=== PATIENT | male | born 1955 | race Caucasian/White ===

== ENCOUNTER → 2017-04-03 18:13 | Outpatient (CLI) | payer BC ==
[2013-01-15 10:51] VITALS: BMI 25.1
[2017-04-03 20:54] LABS: ALT (SGPT) 31 U/L (10-68); LIPASE 290 U/L (73-393)
== END | disposition home or self-care (01) ==
LOC: D.LABREF 18:13
PROVIDERS: Internal Medicine Interventional Cardiology
DX: E78.5 Hyperlipidemia, unspecified (principal)

== ENCOUNTER 2018-07-14 08:03 | Outpatient (CLI) | payer BC ==
[~2018-07-14] VITALS: Ht 177.8 cm; Wt 88.6 kg
--- NOTE | ~2018-07-14 | DS ---
PATIENT:JANICE GONZALEZ :59 MEDICAL RECORD: [id number] DISCHARGE SUMMARY ADMISSION DATE: 07/14/18 DISCHARGE DATE: 07/15/18 DATE OF DISCHARGE: 07/15/2018 DIAGNOSES: 1. Non-Q-wave myocardial infarction. 2. Coronary artery disease. 3. PTCA and stent of LAD and circumflex this admission. HOSPITAL COURSE: Mr. Gonzalez presented with a non-Q-wave myocardial infarction, found to have critical disease of the LAD and circumflex. Underwent successful PTCA and stent of both territories. He was discharged home with the addition of aspirin and Plavix to his medical regimen as he is already on a statin and beta-rafael. He will follow up with [facility] in 1 month. TRANSINT:[id number] Voice Confirmation ID: [id number] DOCUMENT ID: [id number] CARLOS MAJANO MD at 1806 CC: [id number] DICTATION DATE: 07/15/18 0953 HORTICULTURAL TECHNICAL OFFICER: 07/15/18 1353 DEP CLI 07/15/[address] [address]
--- NOTE | ~2018-07-14 | HP ---
PATIENT: JANICE GONZALEZ MEDICAL RECORD: [id number] ACCOUNT: [id number] LOCATION:[facility] : 59 ADMISSION DATE: 07/14/18 HISTORY AND PHYSICAL EXAMINATION DIAGNOSES: 1. Non-Q-wave myocardial infarction. 2. Coronary disease. 3. Previous PTCA and stent. 4. Hypertension. 5. Hyperlipidemia. HISTORY: Mr. Gonzalez presents with chest pain since last night. His troponin is positive. He does have a past history of coronary disease. He had a [facility] and [facility] at [facility] at age 40. His last stents were 3 years ago at [facility]. REVIEW OF SYSTEMS: The patient reports easy bruising but reports no swollen glands. The patient reports no fever, no night sweats, no significant weight gain, no significant weight loss. No significant exercise tolerance. The patient reports no dry eyes, no irritation, no vision change. Patient reports no difficulty hearing and no ear pain. Patient reports no frequent nose bleeds or nose and sinus problems. Patient reports on arm pain on exertion. No shortness of breath while lying down. No history of heart murmur. Patient reports no cough, no wheezing or coughing up blood. Patient reports no abdominal pain, no vomiting. Normal appetite. No diarrhea and not vomiting blood. No nausea and no constipation. Patient reports no incontinence. No difficulty urinating. No hematuria. No increased frequency. Patient reports no muscle aches. No weakness, no arthralgias, no back pain. No swelling of the extremities. Patient reports no abnormal mole, no jaundice, no rashes. Reports no loss of consciousness. No weakness and no numbness. No seizures, dizziness, or headaches. The patient reports no depression, no sleep disturbance, feeling safe in a relationship and no alcohol abuse. Patient reports on fatigue. Reports no runny nose or sinus pressure. No itching, no hives, and no frequent sneezing. PHYSICAL EXAMINATION: GENERAL APPEARANCE: Well-nourished, well-developed, appears stated age. Level of distress, comfortable. PSYCHIATRIC: Mental status, alert, normal affect. Orientation, oriented to time, place and person. EYES: Lids and conjunctiva, noninjected. No discharge, no pallor. ENT: Lips, teeth, gums, normal dentition. Oropharynx, no cyanosis, no pallor. NECK: Carotid arteries, bilateral normal upstroke, no bruits, no thrills. JUGULAR VEINS: No jugular venous pressure or distention. CERVICAL LYMPH NODES: Nontender, nonenlarged. THYROID: Not enlarged. Nontender. No nodules. LUNGS: Respiratory effort, unlabored. CHEST: Normal curvature. No thoracic deformity. No chest wall tenderness. Percussion, resonant. Auscultation, clear. No wheezes, no rales, no rhonchi. CARDIOVASCULAR: Precordial exam, nondisplaced. No heaves or pericardial thrills. Rate and rhythm, regular. Heart sounds, normal S1, normal S2. No S3, no gallop, no rub. Systolic murmur, not heard. Diastolic murmur, not heard. EXTREMITIES: No cyanosis, no edema. Peripheral pulses, full and equal in all extremities, except as noted. No bruits appreciated. ABDOMEN: Soft, nondistended. Normal aorta. No bruit. Nontender. No masses. HISTORY AND PHYSICAL [id number] YOLY,JANICE Liver, nontender, no hepatomegaly. Spleen, nontender, no splenomegaly. MUSCULOSKELETAL: No joint tenderness. No joint swelling. No erythema. NEUROLOGICAL: Normal gait, normal strength, normal tone. SKIN: Warm and dry. OVERALL IMPRESSION: Non-Q-wave myocardial infarction. We will proceed with coronary angiography. Further care depends upon findings of the angiography. TRANSINT:[id number] Voice Confirmation ID: [id number] DOCUMENT ID: [id number] CARLOS MAJANO MD at 1806 CC: [id number] DICTATION DATE: 07/14/18 1150 ADULT DAY CARE WORKER: 07/14/18 1201 DEP CLI 07/15/18 [facility] [address] [id number]
--- NOTE | ~2018-07-14 | OP ---
PATIENT NAME: JANICE FREDERICK MEDICAL RECORD: [id number] :59 LOCATION:D.CAT ADMISSION DATE: SURGEON: CARLOS MAJANO MD DATE OF OPERATION: 07/15/2018 PROCEDURES: 1. PTCA stent left circumflex. 2. PTCA stent first obtuse marginal. 3. Selective coronary angiography. INDICATION: Angina and coronary artery disease. PROCEDURE PERFORMED: After informed consent was obtained and after a detailed description of risks, benefits as well as alternative therapies, the patient elected to proceed with angiogram and angioplasty. The right femoral area was prepped and draped in normal sterile fashion. Right femoral artery was cannulated via modified Seldinger with placement of 7-Taiwanese sheath. All catheters exchanged through this sheath. FINDINGS: The left circumflex has 80+ percent stenosis, first obtuse marginal 95% stenosis. Marginal was addressed with a 2.5 x 8 mm Nathan, the circumflex with a 2.25 x 15 mm [place]. Result was 0% residual stenosis. OVERALL IMPRESSION: Successful percutaneous transluminal coronary angioplasty stent of the left circumflex and first obtuse marginal going from 95% initial stenosis to 0% residual. TRANSINT:[id number] Voice Confirmation ID: [id number] DOCUMENT ID: [id number] CARLOS MAJANO MD at 1806 CC: [id number] DICTATION DATE: 07/15/18 0954 ELECTRIC TRUCK CRANE OPERATOR: 07/15/18 1200 DEP CLI 07/15/18 [place] [id number]
--- NOTE | ~2018-07-14 | HEMODYNAMI ---
PATIENT:JANICE FREDERICK MEDICAL RECORD: [id number] : 59 LOCATION:[facility] ADMISSION DATE: 07/14/18 Generatedon:07/14/201813:20 Patient name: JANICE FREDERICK Patient #: [id number] SSN: D OB: 1955 Date of study: 07/14/2018 Page: Of Hemodynamic Procedure Report Patient Data Patient Demographics Procedure consent was obtained First Name: JANICE Gender: Male Last Name: YOLY : 1955 Patient #: [id number] Age: 62 year(s) Race: Unknown Additional ID: [id number] Contact details Address: [address] [place] [address] DRIVE State: [place] City: [place] Zip code: [address] Admission Admission Data Admission Date: 07/14/2018 Admission Time: 8:03 Arrival Date: 07/14/2018 Arrival Time: 0:00 Admit Source: Emergency Insurance Payor: Private department health insurance Lab Results Lab Result Date: 07/14/2018 Lab Result Time: 0:00 Biochemistry Name Units Result Min Max BUN mg/dl 12 --(-*--)-- 7 18 Creatinine mg/dl 1 --(--*-)-- 0.6 1.3 CBC Name Units Result Min Max Hemoglobin g/dl 15.4 --(-*--)-- 13.5 17.5 Procedure Procedure Types Cath Procedure Diagnostic Procedure LHC LH w/Coronaries Sedation Charges Moderate Sedation up to 15 minutes PCI Procedure Coronary Stent Coronary Stent Initial Coronary Stent Additional Procedure Description Procedure Date Procedure Date: 07/14/2018 Procedure Start Time: 12:53 Procedure End Time: 13:16 Procedure Staff Name Function Ayad Maria MD Performing Physician Fely Desai RT Monitor Carmita Bah RN Nurse Ruth Ann Romero RT Scrub Procedure Data Cath Procedure Fluoroscopy Diagnostic fluoroscopy Total fluoroscopy Time: 8.4 time: 8.4 min min Diagnostic fluoroscopy Total fluoroscopy dose: dose: 1416 mGy 1416 mGy Contrast Material Contrast Material Type Amount (ml) Isovue 300 203 Entry Location Entry Primary Successful Side Size Upsize Upsize Entry Closure Succes sful Closure Location (Fr) 1 (Fr) 2 (Fr) Remarks Device Remarks Femoral Left 6 Fr Exoseal artery Short Estimated blood loss: 5 ml Diagnostic catheters Device Type Used For End Catheter Placement MULTIPACK Pigtail 5 Fr LV Angiography catheter MULTIPACK JL 4.0 5Fr Left Coronary catheter Angiography MULTIPACK 3DRC 5Fr Right Coronary catheter Angiography Procedure Complications No complications Procedure Medications Medication Administration Route Dosage Oxygen etCO2 Nasal cannula 2 l/min Lidocaine 2% added to field 20 Heparin Flush Bag added to field 2 bags (1000units/500ml NS) 0.9% NaCl I.V. 100 ml/hr Versed I.V. 2 mg Fentanyl I.V. 100 mcg Heparin Bolus I.V. 5000 units Versed I.V. 1 mg Fentanyl I.V. 50 mcg Integrilin (Bolus I.V. 7.9 ml 2mg/ml) Versed I.V. 1 mg Fentanyl I.V. 50 mcg Hemodynamics Rest HGB: 15.4 (g/dl) Heart Rate: 46 (bpm) Snapshots Pre Cath Intra NCS Post Cath Vital Signs Time Heart Resp SPO2 etCO2 NIBP Rhythm Pain Sedation Rate (ipm) (%) (mmHg) (mmHg) Status Level (bpm) 12:14:34 50 15 98 31.5 105/63(78) NSR 0 (11) 10(A) , No pain 12:18:38 55 11 96 21 98/61(75) NSR 0 (11) 10(A) , No pain 12:22:39 54 15 97 20 104/59(78) NSR 0 (11) 10(A) , No pain 12:26:43 60 14 94 0 97/60(77) NSR 0 (11) 10(A) , No pain 12:30:47 57 15 93 0 95/58(76) NSR 0 (11) 10(A) , No pain 12:34:51 52 15 94 23.2 97/55(74) NSR 0 (11) 10(A) , No pain 12:38:52 54 14 96 24 98/60(75) NSR 0 (11) 10(A) , No pain 12:42:54 58 16 93 24.7 99/62(72) NSR 0 (11) 10(A) , No pain 12:46:58 53 16 96 24.7 99/60(72) NSR 0 (11) 10(A) , No pain 12:51:00 54 14 95 24.7 98/61(79) NSR 0 (11) 10(A) , No pain 12:55:01 52 15 100 0 92/63(76) NSR 0 (11) 9(A) , No pain 12:59:01 57 13 97 23.2 96/61(82) NSR 0 (11) 9(A) , No pain 13:03:00 55 14 100 0 102/64(76) NSR 0 (11) 9(A) , No pain 13:07:04 58 13 99 17.9 96/61(79) NSR 0 (11) 9(A) , No pain 13:11:04 54 12 100 11.9 103/66(74) NSR 0 (11) 9(A) , No pain 13:15:04 57 14 100 23.2 115/74(94) NSR 0 (11) 10(A) , No pain Medications Time Medication Route Dose Verified Delivered Reason Notes Effectiveness by by 12:14:58 Oxygen etCO2 2 Ayad Buffie used for Nasal l/min Candace Bah RN procedure cannula 12:15:05 Lidocaine 2% added 20ml Ayad Ayad for local to vial Candace Maria MD anesthetic field 12:15:12 Heparin Flush added 2 Ayad Ayad used for Bag to bags Candace Maria MD procedure (1000units/500ml field NS) 12:15:22 0.9% NaCl I.V. 100 Ayad Buffie Per physician ml/hr Candace Bah RN 12:52:26 Versed I.V. 2 mg Ayad Buffie for sedation Candace Bah RN 12:52:34 Fentanyl I.V. 100 Ayad Buffie for sedation mcg Candace aBh RN 12:59:20 Heparin Bolus I.V. 5000 Ayad Buffie for verif ied units Candace Bah RN anticoagulation with dr maria 13:02:24 Versed I.V. 1 mg Ayad Buffie for sedation Candace Bah RN 13:02:27 Fentanyl I.V. 50 Ayad Buffie for sedation mcg Candace Bah RN 13:08:25 Versed I.V. 1 mg Ayad Vizcarra for sedation Candace Bah RN 13:08:29 Fentanyl I.V. 50 Ayad Vizcarra for sedation mcg Candace Bah RN 13:12:57 Integrilin I.V. 7.9 Ayad Vizcarra for Waste d (Bolus 2mg/ml) ml Candace Bah RN antiplatelet 2.1 ml therapy of vial Procedure Log Time Note 11:49:10 Diagnostic Cath status Elective 11:49:13 Carmita Bah RN sent for patient. Start room use. 11:49:14 Time tracking: Regular hours (M-F 7:00 - 5:00) 11:49:26 Plan of Care:Hemodynamics will remain stable., Cardiac rhythm will remain stable., Comfort level will be maintained., Respiratory function will remain adequate., Patient/ family verbilizes understanding of procedure., Procedure tolerated without complication., Recovers from procedure without complications.. 11:49:32 Patient received from ED to CCL 2 Alert and oriented. Tansferred to table in Supine position. 12:00:18 Admit Source: Emergency department 12:00:26 Insurance Payor : Private health insurance 12:00:31 Arrival Date: 07/14/2018 12:00:00 AM 12:01:52 Lab Result : BUN 12 mg/dl 12:01:52 Lab Result : Hemoglobin 15.4 g/dl 12:01:52 Lab Result : Creatinine 1 mg/dl 12:13:16 Warm blankets applied, and rj hugger turned on for patient comfort. 12:13:16 Correct patient and procedure confirmed by team. 12:13:18 Signed procedure consent form obtained from patient. 12:13:19 ECG and BP/O2 sat monitors applied to patient. 12:13:20 Vital chart was started 12:13:27 Baseline sample Acquired. 12:13:35 Rhythm: sinus rhythm 12:13:36 Full Disclosure recording started 12:13:44 H&P Date Dictated: 07/14/2018 New H&P dictated by physician.. 12:13:46 Pre-procedure instructions explained to patient. 12:13:46 Pre-op teaching completed and patient verbalized understanding. 12:13:47 Family in waiting room. 12:13:49 Patient NPO since Midnight. 12:13:50 Is the patient allergic to Iodine/contrast media? No. 12:13:51 Was the patient premedicated? No 12:14:01 Is patient on blood thinner?Yes 12:14:03 ACC The patient was administered the following blood thiners within the last 24 hours: ACCPlavix 12:14:05 Patient diabetic? No. 12:14:08 Previous problem with sedation/anesthesia? No ? 12:14:10 Snore? No 12:14:11 Sleep apnea? No 12:14:12 Deviated septum? No 12:14:12 Opens mouth fully? Yes 12:14:13 Sticks out tongue? Yes 12:14:15 Airway obstruction? No ? 12:14:17 Dentures? No ? 12:14:21 Pre procedure: right dorsailis pedis pulse 2+ Normal; easily identifiable; not easily obliterated 12:14:58 Oxygen 2 l/min etCO2 Nasal cannula was administered by Carmita Bah RN; used for procedure; 12:15:05 Lidocaine 2% 20ml vial added to field was administered by Ayad Maria MD; for local anesthetic; 12:15:12 Heparin Flush Bag (1000units/500ml NS) 2 bags added to field was administered by Ayad Maria MD; used for procedure; 12:15:22 0.9% NaCl 100 ml/hr I.V. was administered by Carmita Bah RN; Per physician; 12:19:57 Patient pain scale 0/10 ?. 12:20:13 IV patent on arrival in right forearm with 0.9% NaCl at [facility]. 12:20:15 Lab results completed and on chart. 12:20:18 Left groin area was prepped with chlora-prep and draped in sterile fashion 12:20:19 Alarms reviewed by R. N. 12:20:20 Sharps counted by scrub and verified by R.N. 12:22:04 Physician paged 12:51:09 Physician arrived 12:51:09 --------ALL STOP TIME OUT------ 12:51:10 Final Timeout: patient, procedure, and site verified with staff and physician. All members of the team are in agreement. 12:51:14 Left groin site verified by team. 12:51:17 Physical assessment completed. ASA score P 2 - A patient with mild systemic disease as per Ayad Maria MD. 12:51:21 Sedation plan: IV Moderate Sedation Medication:Versed, Fentanyl 12:51:27 Use device set Femoral Dx 12:51:29 ACIST Syringe (26015) opened to sterile field. 12:51:29 Bag Decanter (2002S) opened to sterile field. 12:51:30 Medline Cath Pack ([id number]) opened to sterile field. 12:51:30 DIAGNOSTIC WIRE .035 260cm J wire (682563) opened to sterile field. 12:51:32 ACIST Hand Control (24524) opened to sterile field. 12:51:32 ACIST Manifold (60509) opened to sterile field. 12:51:33 DIAGNOSTIC Multipack 5Fr catheter set (BL5234) opened to sterile field. 12:51:33 Tegaderm 4 x 4 (1626W) opened to sterile field. 12:51:40 Procedure started. 12:52:26 Versed 2 mg I.V. was administered by Carmita Bah RN; for sedation; 12:52:34 Fentanyl 100 mcg I.V. was administered by Carmita Bah RN; for sedation; 12:53:04 Local anesthetic to left femerol artery with Lidocaine 2% by Ayad Maria MD.INITIAL ACCESS ONLY 12:53:16 A 6 Fr Short sheath was inserted into the Left Femoral artery 12:53:27 SHEATH 6Fr Prelude ([id number]) opened to sterile field. 12:54:18 A MULTIPACK Pigtail 5 Fr catheter was advanced over the wire and used for LV Angiography. 12:54:59 LV hemodynamics recorded. 12:55:00 LV gram done using CORONEL 12:55:13 EF : 60 % 12:55:19 Catheter removed. 12:55:27 A MULTIPACK JL 4.0 5Fr catheter was advanced over the wire and used for Left Coronary Angiography. 12:56:20 LCA angiography performed. 12:56:32 Injector settings: Ml/sec: 3, Volume: 6, 12:56:54 Catheter removed. 12:57:00 A MULTIPACK 3DRC 5Fr catheter was advanced over the wire and used for Right Coronary Angiography. 12:57:09 RCA angiography performed. 12:57:11 Injector settings: Ml/sec: 3, Volume: 6, 12:57:18 Catheter removed. 12:57:19 Proceeding to intervention. 12:57:51 CHOICE PT Extra Support 182cm wire ([id number]) opened to sterile field. 12:57:52 INFLATOR Merit BasixCompak (JE7590) opened to sterile field. 12:58:42 GUIDE 6FR XBLAD 4.0 catheter ([id number]) opened to sterile field. 12:59:01 6 Fr xblad 4 guide catheter was inserted over the wire 12:59:20 Heparin Bolus 5000 units I.V. was administered by Carmita Bah RN; for anticoagulation; verified with dr maria 12:59:33 CHOICE PT Extra Support 182cm wire ([id number]) opened to sterile field. 12:59:59 choice pt wire advanced. 13:01:42 additional choice pt wire advanced across diagonal 13:02:18 Inflate balloon Inflation number: 1 A EUPHORA 2.5 x 15 Balloon ([id number]) was prepped and advanced across the 1st Diag, then inflated to 11 ZAHIRA for 0:10 (min:sec). 13:02:24 Versed 1 mg I.V. was administered by Carmita Bah RN; for sedation; 13:02:27 Fentanyl 50 mcg I.V. was administered by Carmita Bah RN; for sedation; 13:02:42 Inflation number: 2 The EUPHORA 2.5 x 15 Balloon ([id number]) was reinflated across the 1st Diag, to 11 ZAHIRA for 0:10 (min:sec). 13:03:05 Balloon removed over the wire. 13:05:19 Place stent Inflation Number: 3 A NELIA RX 2.5 x 15 stent ([id number]) was prepped and advanced across the 1st Diag. The stent was deployed at 13 ZAHIRA for 0:10 (min:sec). 13:05:56 Stent catheter was removed intact over wire. 13:06:13 wire removed from diagonal 13:07:25 Inflation number: 1 The EUPHORA 2.5 x 15 Balloon ([id number]) was reinflated across the Mid LAD, to 17 ZAHIRA for 0:10 (min:sec). 13:08:10 Balloon removed over the wire. 13:08:25 Versed 1 mg I.V. was administered by Carmita Bah RN; for sedation; 13:08:29 Fentanyl 50 mcg I.V. was administered by Carmita Bah RN; for sedation; 13:09:14 Place stent Inflation Number: 2 A NELIA RX 3.0 x 12 stent ([id number]) was prepped and advanced across the Mid LAD. The stent was deployed at 13 ZAHIRA for 0:10 (min:sec). 13:09:58 Stent catheter was removed intact over wire. 13:12:44 Place stent Inflation Number: 1 A NELIA RX 3.5 x 38 stent ([id number]) was prepped and advanced across the Prox LAD. The stent was deployed at 15 ZAHIRA for 0:10 (min:sec). 13:12:57 Integrilin (Bolus 2mg/ml) 7.9 ml I.V. was administered by Carmita Bah RN; for antiplatelet therapy; Wasted 2.1 ml of vial 13:13:42 Stent catheter was removed intact over wire. 13:13:43 Wire removed. 13:13:43 Guide catheter removed. 13:13:53 EXOSEAL 6Fr (EX600) opened to sterile field. 13:14:09 Sheath removed intact; hemostasis achieved with Exoseal to the Left Femoral artery. 13:14:11 Procedure ended.(Physican Out) 13:15:38 Fluoroscopy time 08.40 minutes. 13:15:42 Fluoroscopy dose: 1416 mGy 13:15:42 Flurop Dose total: 1416 13:15:45 Contrast amount:Isovue 300 203ml. 13:15:47 Sharps counted by scrub and verified by R.N. 13:15:48 Insertion/operative site no bleeding no hematoma. 13:15:51 Post-op/insertion site Left Femoral artery dressed using a 4 x 4 and Tegaderm. 13:15:54 Post left femerol artery:stable 13:15:56 Post Procedure Pulses reassessed and unchanged 13:15:58 Post procedure rhythm: unchanged. 13:16:01 Estimated blood loss: 5 ml 13:16:02 Post procedure instruction explained to patient.Patient verbalizes understanding. 13:16:02 Patient needs reinforcement of post procedure teaching. 13:16:40 Procedure type changed to Cath procedure, Diagnostic procedure, LHC, LHC w/Coronaries, Sedation Charges, Moderate Sedation up to 15 minutes, PCI procedure, Coronary Stent, Coronary Stent Initial, Coronary Stent Additional 13:16:41 Procedure and supply charges have been captured, reviewed, submitted and are correct. 13:16:45 Procedure Complication : No complications 13:16:47 Vital chart was stopped 13:16:48 See physician's report for complete and final results. 13:16:50 Report given to [facility]. 13:16:53 Patient transfered to [facility] with Stretcher. 13:16:56 Procedure ended. 13:16:56 Full Disclosure recording stopped 13:17:04 ACC-PCI Only Patient was given prescriptions, or instructed by Ayad Maria MD to start/continue the following medications upon discharge: Plavix 13:17:06 End room use (Document Last) Intervention Summary Intervention Notes Time ActionType Lesion and Equipment Used Action# Pressure Duration Attributes 13:02:18 Inflate 1st Diag EUPHORA 2.5 x 1 11 00:10 balloon 15 Balloon ([id number]) 13:02:42 Reinflate 1st Diag EUPHORA 2.5 x 2 11 00:10 balloon 15 Balloon ([id number]) 13:05:19 Place stent 1st Diag NELIA RX 2.5 x 3 13 00:10 15 stent ([id number]) 13:07:25 Reinflate Mid LAD EUPHORA 2.5 x 1 17 00:10 balloon 15 Balloon ([id number]) 13:09:14 Place stent Mid LAD NELIA RX 3.0 x 2 13 00:10 12 stent ([id number]) 13:12:44 Place stent Prox LAD NELIA RX 3.5 x 1 15 00:10 38 stent ([id number]) Device Usage Item Name Manufacture Quantity Catalog Number Hospital Part Current M inimal Lot# / Charge Number Stock Stock Serial# Code ACIST Syringe Acist 1 20400 476498 669898 097378 2 0 (28074) Medical Systems Inc Bag Decanter Microtek 1 518772 97179 511299 5 () Medical Inc. Medline Cath Cardinal 1 [id number] 587225 17509 740904 5 [facility] ([id number]) DIAGNOSTIC [facility] [place] 1 089812 580835 575644 581207 3 0 WIRE .035 260cm J wire (155742) ACIST Hand Acist 1 77844 522447 277720 108982 5 Control Medical (89965) Systems Inc ACIST Manifold Acist 1 57138 704600 309539 536370 5 (76347) Medical Systems Inc DIAGNOSTIC Cardinal 1 CR7313 294253 21080 894000 3 0 Multipack 5Fr Health catheter set (AW9552) Tegaderm 4 x 4 3M 1 1626W 806452 395359 154099 5 (1626W) SHEATH 6Fr Merit 1 [id number] 396767 778012 333906 5 Prelude Medical ([id number]) MULTIPACK Cardinal 1 814333 5 Pigtail 5 Fr Health catheter MULTIPACK JL Cardinal 1 516095 5 4.0 5Fr Health catheter MULTIPACK 3DRC Cardinal 1 624190 5 5Fr catheter Health CHOICE PT [place] 2 [id number] 711684 854706 873077 5 Extra Support Scientific 182cm wire ([id number]) INFLATOR Merit Merit 1 HR7011 703044 283525 957737 1 5 [place] (NP0043) GUIDE 6FR Cardinal 1 [id number] 610528 162960 566288 3 XBLAD 4.0 Health catheter ([id number]) EUPHORA 2.5 x Medtronic 1 [id number] 094681 156603 035005 5 [id number] 15 Balloon ([id number]) NELIA RX 2.5 x Medtronic 1 [id number] 065745 4586379 066095 5 [id number] 15 stent ([id number]) NELIA RX 3.0 x Medtronic 1 [id number] 524131 9748701 087532 5 [id number] 12 stent ([id number]) NELIA RX 3.5 x Medtronic 1 [id number] 055805 2720630 658822 5 [id number] 38 stent ([id number]) EXOSEAL 6Fr Cardinal 1 EX600 880027 432393 568233 1 0 (EX600) Health Signature Audit [place] Stage Time Signature Unsigned Intra-Procedure 07/14/2018 Ruth Ann Nick 1:20:53 PM RT(R) Signatures Monitor : Fely Desai Signature : RT Date : Time : [place] [address] [place] [address]
--- NOTE | ~2018-07-14 | OP ---
PATIENT NAME: JANICE FREDERICK MEDICAL RECORD: [id number] :59 LOCATION:D.CAT ADMISSION DATE: SURGEON: CARLOS MAJANO MD DATE OF OPERATION: 07/14/2018 PROCEDURES: 1. PTCA stent LAD. 2. PTCA stent LAD diagonal. 3. Left heart catheterization. 4. Selective coronary angiography. 5. Left ventriculogram. INDICATION: Unstable angina and coronary artery disease. PROCEDURE IN DETAIL: After informed consent was obtained and after a detailed description of risks, benefits as well as alternative therapies, the patient elected to proceed with angiogram and angioplasty. The left femoral area was prepped and draped in normal sterile fashion. Left femoral artery was cannulated via modified Seldinger technique with placement of 6-Chinese sheath. All catheters exchanged through this sheath. FINDINGS: The left ventriculogram was performed in standard 30-degree CORONEL view reveals preserved cardiac wall motion, ejection fraction estimated 60%. SELECTIVE CORONARY ANGIOGRAPHY: 1. Left main is with no significant angiographic disease. 2. Left anterior descending appears has what appears to be dissected area throughout the proximal vessel followed by 90% to 95% stenosis of the LAD and diagonal at the bifurcation. 3. The left circumflex has 95% stenosis of the first obtuse marginal and distal circumflex. 4. Right coronary artery is small, nondominant. PTCA STENT OF THE LAD AND LAD DIAGONAL: The diagonal was addressed with a 2.5 x 15 mm [place], the LAD with a 3.5 x 38 and 3.0 x 12 [place]. Result was 0% residual, no further evidence of dissection or thrombus with advent of KEITH-3 flow. IMPRESSION: Successful percutaneous transluminal coronary angioplasty stent of the left anterior descending going from 90% to 95% initial stenosis to 0% residual. PLAN: PTCA stent of the left circumflex in the near future. TRANSINT:[id number] Voice Confirmation ID: [id number] DOCUMENT ID: [id number] CARLOS MAJANO MD at 1806 CC: [id number] DICTATION DATE: 07/14/18 1320 BELT LINE FEEDER: 07/14/18 1346 DEP CLI 07/15/18 [place] [id number]
--- NOTE | ~2018-07-14 | HEMODYNAMI ---
PATIENT:JANICE FREDERICK MEDICAL RECORD: [id number] : 59 [facility] [id number] ADMISSION DATE: 07/14/18 Generatedon:07/15/20189:54 Patient name: JANICE FREDERICK Patient #: [id number] SSN: D OB: 1955 Date of study: 07/15/2018 Page: Of Hemodynamic Procedure Report Patient Data Patient Demographics Procedure consent was obtained First Name: JANICE Gender: Male Last Name: YOLY : 1955 Patient #: [id number] Age: 62 year(s) Race: Unknown Additional ID: [id number] Contact details [address]: [address] [place] [address] DRIVE State: [place] City: [place] Zip code: [address] Past Medical History Allergies Allergen Reaction Date Comments Reported Other allergy 07/15/2018 PCN Admission Admission Data Admission Date: 07/14/2018 Admission Time: 8:03 Arrival Date: 07/14/2018 Arrival Time: 0:00 Admit Source: Emergency Insurance Payor: Private department health insurance Room #: D.[id number] Lab Results Lab Result Date: 07/14/2018 Lab Result Time: 0:00 Biochemistry Name Units Result Min Max BUN mg/dl 12 --(-*--)-- 7 18 Creatinine mg/dl 1 --(--*-)-- 0.6 1.3 CBC Name Units Result Min Max Hemoglobin g/dl 15.4 --(-*--)-- 13.5 17.5 Procedure Procedure Types Cath Procedure Diagnostic Procedure Sedation Charges Moderate Sedation up to 15 minutes PCI Procedure Coronary Stent Coronary Stent Initial Coronary Stent Additional Procedure Description Procedure Date Procedure Date: 07/15/2018 Procedure Start Time: 9:19 Procedure End Time: 9:51 Procedure Staff Name Function Ayad Maria MD Performing Physician Thanh Owens RT Electric Motor Tester Chirag Henderson RT Monitor Randall Vogel RN Nurse Giuseppe Upton RT Scrub Procedure Data Cath Procedure Fluoroscopy Diagnostic fluoroscopy Total fluoroscopy Time: time: 12.1 min 12.1 min Diagnostic fluoroscopy Total fluoroscopy dose: 571 dose: 571 mGy mGy Contrast Material Contrast Material Type Amount (ml) Isovue 300 129 Entry Location Entry Primary Successful Side Size Upsize Upsize Entry Closure Succes sful Closure Location (Fr) 1 (Fr) 2 (Fr) Remarks Device Remarks Femoral Right 6 Fr 7 Fr Exoseal artery Short Short Estimated blood loss: 10 ml Procedure Complications No complications Procedure Medications Medication Administration Route Dosage Oxygen etCO2 Nasal cannula 2 l/min Heparin Flush Bag added to field 2 bags (1000units/500ml NS) 0.9% NaCl I.V. 100 ml/hr Benadryl I.V. 50 mg Plavix P.O. 75 mg Fentanyl I.V. 50 mcg Versed I.V. 1 mg Fentanyl I.V. 50 mcg Versed I.V. 1 mg Heparin Bolus I.V. 4000 units Heparin Bolus I.V. 2000 units Hemodynamics Rest HGB: 15.4 (g/dl) Heart Rate: 67 (bpm) Snapshots Pre Cath Intra NCS Post Cath Vital Signs Time Heart Resp SPO2 etCO2 NIBP (mmHg) Rhythm Pain Sedation Rate (ipm) (%) (mmHg) Status Level (bpm) 9:08:38 64 16 0 128/72(89) NSR 0 (11) 10(A) , No pain 9:14:00 61 16 98 0 127/68(102) NSR 0 (11) 10(A) , No pain 9:18:18 62 17 97 22.5 130/80(91) NSR 0 (11) 10(A) , No pain 9:22:36 66 16 90 0 131/82(94) NSR 0 (11) 9(A) , No pain 9:26:52 67 16 95 0 127/77(93) NSR 0 (11) 9(A) , No pain 9:31:12 68 17 96 0 123/73(98) NSR 0 (11) 9(A) , No pain 9:35:30 67 17 96 30.8 130/74(96) NSR 0 (11) 9(A) , No pain 9:39:50 67 16 97 30.1 123/73(101) NSR 0 (11) 9(A) , No pain 9:44:06 68 16 97 27.8 121/77(98) NSR 0 (11) 9(A) , No pain 9:48:22 66 17 96 28.5 126/75(102) NSR 0 (11) 9(A) , No pain Medications Time Medication Route Dose Verified Delivered Reason Notes Effectiveness by by 9:06:04 Oxygen etCO2 2 Ayad Houstony Per physician Nasal l/min Candace Vogel RN cannula 9:06:12 Heparin Flush added 2 Ayad Houstony used for Bag to bags Candace Vogel RN procedure (1000units/500ml field NS) 9:06:20 0.9% NaCl I.V. 100 Ayad Houstony Per physician ml/hr Candace Vogel RN 9:12:44 Benadryl I.V. 50 mg Ayad Pereira Per physician Candace Vogel RN 9:12:52 Plavix P.O. 75 mg Ayad Pereira for Candace Vogel RN antiplatelet therapy 9:17:13 Fentanyl I.V. 50 Ayad Randall for sedation mcg Canadce Vogel RN 9:17:21 Versed I.V. 1 mg Ayad Houstony for sedation Candace Vogel RN 9:19:57 Fentanyl I.V. 50 Ayad Houstony for sedation mcg Candace Vogel RN 9:20:04 Versed I.V. 1 mg Ayadjoselito Houstony for sedation Candace Vogel RN 9:24:52 Heparin Bolus I.V. 4000 Ayad Houstony for units Candace Vogel RN anticoagulation 9:44:21 Heparin Bolus I.V. 2000 Ayad Randall for units Candace Vogel RN anticoagulation Procedure Log Time Note 8:40:27 Giuseppe Upton RT(R) sent for patient. Start room use. 8:46:28 Time tracking: Regular hours (M-F 7:00 - 5:00) 8:46:32 Plan of Care:Hemodynamics will remain stable., Cardiac rhythm will remain stable., Comfort level will be maintained., Respiratory function will remain adequate., Patient/ family verbilizes understanding of procedure., Procedure tolerated without complication., Recovers from procedure without complications.. 8:58:08 Patient received from Med II to [facility] 3 Alert and oriented. Tansferred to table in Supine position. 8:58:09 Warm blankets applied, and rj hugger turned on for patient comfort. 8:58:10 Correct patient and procedure confirmed by team. 8:58:11 Signed procedure consent form obtained from patient. 8:58:12 ECG and BP/O2 sat monitors applied to patient. 8:58:13 Pre-procedure instructions explained to patient. 8:58:13 Pre-op teaching completed and patient verbalized understanding. 9:06:04 Oxygen 2 l/min etCO2 Nasal cannula was administered by Randall Vogel RN; Per physician; 9:06:12 Heparin Flush Bag (1000units/500ml NS) 2 bags added to field was administered by Randall Vogel RN; used for procedure; 9:06:20 0.9% NaCl 100 ml/hr I.V. was administered by Randall Vogel RN; Per physician; 9:07:26 Vital chart was started 9:12:44 Benadryl 50 mg I.V. was administered by Randall Vogel RN; Per physician; 9:12:52 Plavix 75 mg P.O. was administered by Randall Vogel RN; for antiplatelet therapy; 9:14:11 Baseline sample Acquired. 9:14:14 Rhythm: sinus rhythm 9:14:15 Full Disclosure recording started 9:14:32 H&P Date Dictated: 07/14/2018 Within 30 days and on chart.. 9:14:35 Family unavailable. 9:14:36 Patient NPO since Midnight. 9:14:47 Patient allergic to Other allergyPCN 9:14:49 Is the patient allergic to Iodine/contrast media? No. 9:14:51 Is patient on blood thinner?Yes 9:14:55 Patient diabetic? No. 9:14:57 Previous problem with sedation/anesthesia? No ? 9:14:59 Snore? No 9:15:00 Sleep apnea? No 9:15:00 Deviated septum? No 9:15:01 Opens mouth fully? Yes 9:15:02 Sticks out tongue? Yes 9:15:10 Airway obstruction? Yes lobectomy 9:15:16 Dentures? No ? 9:15:18 Pre procedure: right dorsailis pedis pulse 2+ Normal; easily identifiable; not easily obliterated 9:15:21 Patient pain scale 0/10 ?. 9:15:24 IV patent on arrival in right wrist with 0.9% NaCl at [facility]. 9:15:27 Lab results completed and on chart. 9:15:29 Right groin area was prepped with chlora-prep and draped in sterile fashion 9:15:30 Alarms reviewed by R. N. 9:15:31 Sharps counted by scrub and verified by R.N. 9:15:34 ACIST Syringe (32710) opened to sterile field. 9:15:34 Bag Decanter (2002S) opened to sterile field. 9:15:35 Medline Cath Pack ([id number]) opened to sterile field. 9:15:36 DIAGNOSTIC WIRE .035 260cm J wire (122638) opened to sterile field. 9:15:37 ACIST Hand Control (50263) opened to sterile field. 9:15:37 ACIST Manifold (69244) opened to sterile field. 9:15:38 Tegaderm 4 x 4 (1626W) opened to sterile field. 9:15:48 SHEATH Prelude 6Fr 0.035 (BTP-9V-52-035) opened to sterile field. 9:15:57 CHOICE PT Extra Support 182cm wire ([id number]) opened to sterile field. 9:15:57 INFLATOR Merit BasixCompak (FS6139) opened to sterile field. 9:16:02 Physician arrived 9:16:02 --------ALL STOP TIME OUT------ 9:16:03 Final Timeout: patient, procedure, and site verified with staff and physician. All members of the team are in agreement. 9:16:05 Right groin site verified by team. 9:16:07 Physical assessment completed. ASA score P 2 - A patient with mild systemic disease as per Ayad Maria MD. 9:16:09 Sedation plan: IV Moderate Sedation Medication:Versed, Fentanyl 9:17:13 Fentanyl 50 mcg I.V. was administered by Randall Vogel RN; for sedation; 9:17:21 Versed 1 mg I.V. was administered by Randall Vogel RN; for sedation; 9:19:20 Procedure started. 9:19:22 Local anesthetic to right femoral artery with Lidocaine 2% by Ayad Maria MD.INITIAL ACCESS ONLY 9:19:29 A 6 Fr Short sheath was inserted into the Right Femoral artery 9:19:41 Zero performed for pressure channel P1 9:19:57 Fentanyl 50 mcg I.V. was administered by Randall Vogel RN; for sedation; 9::04 Versed 1 mg I.V. was administered by Randall Vogel RN; for sedation; 9:20:04 IV Extension Set opened to sterile field. 9:20:15 GUIDE 6FR XBLAD 4.0 catheter ([id number]) opened to sterile field. 9:20:22 6 Fr XBLAD 4 guide catheter was inserted over the wire 9:21:25 CHOICE PT ES wire advanced. 9:22:50 Wire removed. unable to cannulate vessel. 9:22:58 GRAPHIX 182cm guide wire ([id number]) opened to sterile field. 9:23:05 GRAPHIX wire advanced. 9:24:19 Wire advanced across lesion. 9:24:52 Heparin Bolus 4000 units I.V. was administered by Randall Vogel RN; for anticoagulation; 9:26:41 The NELIA RX 2.25 x 15 stent ([id number]) was advanced then removed because of failure to cross lesion 9:26:47 Wire removed. unable to get back-up support 9:26:50 Guide Catheter removed. unable to get back-up support 9:26:59 SHEATH 7FR Goff (VXJ803) opened to sterile field. 9:27:08 GUIDE 7FR EBU 3.5 catheter ([id number]) opened to sterile field. 9:27:14 Sheath upsized to a 7 Fr Short. 9:27:20 7 Fr EBU 3.5 guide catheter was inserted over the wire 9:27:24 GRAPHIX wire advanced. 9:28:51 Wire advanced across lesion. 9:30:42 The NELIA RX 2.25 x 15 stent ([id number]) was advanced then removed because of failure to cross lesion 9:31:41 Inflate balloon Inflation number: 1 A EUPHORA 3.5 x 15 Balloon ([id number]) was prepped and advanced across the Dist CX, then inflated to 15 ZAHIRA for 0:10 (min:sec). 9:32:34 Balloon removed over the wire. 9:33:24 Place stent Inflation Number: 2 A NELIA RX 2.25 x 15 stent ([id number]) was prepped and advanced across the Dist CX. The stent was deployed at 13 ZAHIRA for 0:10 (min:sec). 9:33:34 Stent catheter was removed intact over wire. 9:33:35 Wire removed. 9:33:46 GRAPHIX 182cm guide wire ([id number]) opened to sterile field. 9:33:53 GRAPHIX wire advanced. 9:36:16 Wire removed. unable to cannulate vessel. 9:36:27 SuperCross Microcatheter 90 angle (5304) opened to sterile field. 9:36:28 GRAPHIX 300cm 0.014 guide wire ([id number]) opened to sterile field. 9:36:41 LONG GRAPHIX wire advanced. 9:37:09 SuperCross Microcatheter advanced over wire. 9:39:16 Wire advanced across lesion. 9:41:58 superCross removed over wire. 9:42:06 The NELIA OTW 2.5 x 08 stent ([id number]) was advanced then removed because of failure to cross lesion 9:44:11 Inflate balloon Inflation number: 1 A MAVERICK 2.5 X 9 balloon ([id number]) was prepped and advanced across the 1st Ob Mindy, then inflated to 13 ZAHIRA for 0:10 (min:sec). 9:44:20 Inflation number: 2 The MAVERICK 2.5 X 9 balloon ([id number]) was reinflated across the 1st Ob Mindy, to 17 ZAHIRA for 0:10 (min:sec). 9:44:21 Heparin Bolus 2000 units I.V. was administered by Randall Vogel RN; for anticoagulation; 9:44:45 Balloon removed over the wire. 9:46:06 Inflation number: 3 The MAVERICK 2.5 X 9 balloon ([id number]) was reinflated across the 1st Ob Mindy, to 17 ZAHIRA for 0:10 (min:sec). 9:46:24 Balloon removed over the wire. 9:46:25 Wire removed. 9:46:25 Guide catheter removed. 9:46:31 EXOSEAL 7Fr (EX700) opened to sterile field. 9:46:38 Sheath removed intact; hemostasis achieved with Exoseal to the Right Femoral artery. 9:46:39 Procedure ended.(Physican Out) 9:48:21 Fluoroscopy time 12.10 minutes. 9:48:27 Fluoroscopy dose: 571 mGy 9:48:27 Flurop Dose total: 571 9:48:37 Contrast amount:Isovue 300 129ml. 9:48:50 Sharps counted by scrub and verified by R.N. 9:48:51 Insertion/operative site no bleeding no hematoma. 9:48:54 Post-op/insertion site Right Femoral artery dressed using a 4 x 4 and Tegaderm. 9:48:57 Post right femoral artery:stable, soft, clean and dry 9:49:20 Post Procedure Pulses reassessed and unchanged 9:49:25 Post-procedure physical assessment completed. ASA score P 2 - A patient with mild systemic disease as per Ayad Maria MD. 9:49:27 Post procedure rhythm: unchanged. 9:49:30 Estimated blood loss: 10 ml 9:49:31 Post procedure instruction explained to patient.Patient verbalizes understanding. 9:49:31 Patient needs reinforcement of post procedure teaching. 9:50:05 Procedure type changed to Cath procedure, Diagnostic procedure, Sedation Charges, Moderate Sedation up to 15 minutes, PCI procedure, Coronary Stent, Coronary Stent Initial, Coronary Stent Additional 9:51:05 Procedure and supply charges have been captured, reviewed, submitted and are correct. 9:51:07 Procedure Complication : No complications 9:51:09 Vital chart was stopped 9:51:09 See physician's report for complete and final results. 9:51:11 Report given to Pre/Post Procedure Room. 9:51:13 Patient transfered to Pre/Post Procedure Room with Stretcher. 9:51:14 Procedure ended. 9:51:14 Full Disclosure recording stopped 9:51:42 End room use (Document Last) Intervention Summary Intervention Notes Time ActionType Lesion and Equipment Used Action# Pressure Duration Attributes 9:26:41 Discard NELIA RX 2.25 x Stent 15 stent ([id number]) 9:30:42 Discard NELIA RX 2.25 x Stent 15 stent ([id number]) 9:31:41 Inflate Dist CX EUPHORA 3.5 x 1 15 00:10 balloon 15 Balloon ([id number]) 9:33:24 Place stent Dist CX NELIA RX 2.25 x 2 13 00:10 15 stent ([id number]) 9:42:06 Discard NELIA OTW 2.5 x Stent 08 stent ([id number]) 9:44:11 Inflate 1st Ob Mindy MAVERICK 2.5 X 1 13 00:10 balloon 9 balloon ([id number]) 9:44:20 Reinflate 1st Ob Mindy MAVERICK 2.5 X 2 17 00:10 balloon 9 balloon ([id number]) 9:46:06 Reinflate 1st Ob Mindy MAVERICK 2.5 X 3 17 00:10 balloon 9 balloon ([id number]) Device Usage Item Name Manufacture Quantity Catalog Number Hospital Part Current Minimal Lot# / Charge Number Stock Stock Serial# Code ACIST Syringe Acist 1 18022 063187 590390 200811 20 (00127) [employer] Bag Decanter Microtek 1 595951 48855 909757 5 () Medical Inc. Medline Cath Cardinal 1 [id number] 597809 83772 414078 5 CaseStack ([id number]) DIAGNOSTIC WIRE [facility] [place] 1 349608 283514 756148 475970 30 .035 260cm J wire (980031) ACIST Hand Acist 1 88783 815212 760212 173839 5 Control (75647) [employer] Inc ACIST Manifold Acist 1 88851 550731 012044 803513 5 (51425) Medical Systems Inc Tegaderm 4 x 4 3M 1 1626W 949236 749921 122662 5 (1626W) SHEATH Prelude Merit 1 PLP-2S-59-35 641557 4750751 613784 5 6Fr 0.035 Medical (JFS-3A-43-035) CHOICE PT Extra [place] 1 [id number] 491352 235859 169586 5 Support 182cm Scientific wire ([id number]) INFLATOR Merit Merit 1 UF5540 189722 210829 391104 15 [facility] ([place]) IV Extension Hospira 1 80044-10 201444 11440 576648 5 Set GUIDE 6FR XBLAD Cardinal 1 14379064 783433 939993 154726 3 4.0 The Optima (09275178) GRAPHIX 182cm [place] 2 [id number] 031537 079211 150031 5 guide wire Scientific ([id number]) NELIA RX 2.25 x Medtronic 1 [id number] 619208 3722031 760342 5 [id number] 15 stent ([id number]) SHEATH 7FR Terumo 1 ZHG976 472402 673033 423622 5 Goff (ITM596) GUIDE 7FR EBU Medtronic 1 [id number] 511564 454277 084452 0 3.5 catheter ([id number]) EUPHORA 3.5 x Medtronic 1 [id number] 549240 218483 442396 5 [id number] 15 Balloon ([id number]) SuperCross Vascular 1 5304 147092 545963 332786 5 Microcatheter Solutions 90 angle (5304) GRAPHIX 300cm [place] 1 [id number] 303229 335365 313514 5 0.014 guide Scientific wire ([id number]) NELIA OTW 2.5 x Medtronic 1 [id number] 045402 87435 062239 5 [id number] 08 stent ([id number]) MAVERICK 2.5 X [place] 1 [id number] 590341 109258 088034 1 [id number] 9 balloon Scientific ([id number]) EXOSEAL 7Fr Cardinal 1 EX700 413622 966054 912151 5 (EX700) Health Signature Audit [place] Stage Time Signature Unsigned Intra-Procedure 07/15/2018 Chirag Henderson 9:54:09 AM RT(R) Signatures Monitor : Chirag Henderson RT Signature : Date : Time : [facility] [address] [place] [address]
[2018-07-14] MEDS ORDERED: PRAVACHOL40 MG PO (08:10)
[2018-07-14] MEDS ORDERED: BAYER CHEWABLE81 MG PO (08:10)
[2018-07-14] MEDS ORDERED: METOPROLOL TART25 MG PO (08:10)
[2018-07-14] MEDS ORDERED: MULTIPLE VITAMI1 TA1 PO (08:11)
[2018-07-14] MEDS ORDERED: SAW PALMETTO450 MG PO (08:11)
[2018-07-14] MEDS ORDERED: [UNRECOGNIZED DRUG - OTHER] (08:12)
[2018-07-14 08:27] LABS: BASOPHILS 0.2 % (0-2); EOSINOPHILS 1.2 % (0-7); HEMATOCRIT 43.5 % (42.0-54.0); HEMOGLOBIN 15.4 g/dL (13.5-17.5); IMMATURE GRANULOCYTES 0.5 % (0-5); LYMPHOCYTES 18.8 % (15-50); MCH 31.8 pg (26.0-34.0); MCHC 35.4 g/dL (31.0-37.0); MCV 89.7 fL (80.0-100.0); MEAN PLATELET VOLUME 9.9 fL (7.4-10.4); MONOCYTES 9.4 % (2-11); NEUTROPHILS 69.9 % (40-80); PLATELET COUNT 157 10x3/uL (130-400); RBC 4.85 10x6/uL (4.20-6.10); RDW 12.6 % (11.5-14.5); WBC 6.1 10x3/uL (4.8-10.8)
[2018-07-14 08:53] LABS: ALBUMIN 3.7 g/dL (3.4-5.0); ALKALINE PHOSPHATASE 85 U/L (46-116); ALT (SGPT) 28 U/L (10-68); BILIRUBIN - TOTAL 0.79 mg/dL (0.2-1.3); CALC OSMOLALITY 276 mosm/kg (275-300); CALCIUM 9.4 mg/dL (8.5-10.1); CARBON DIOXIDE 28.8 mmol/L (21.0-32.0); CHLORIDE - SERUM 103 mmol/L (98-107); GLUCOSE 123 mg/dL (74-106); POTASSIUM - SERUM 3.7 mmol/L (3.5-5.1); PROTEIN - SERUM 7.4 g/dL (6.4-8.2); SODIUM 138 mmol/L (136-145); UREA NITROGEN 12 mg/dL (7-18); eGFR NON AFRICAN AMERICAN 81 mL/min (90-120)
[2018-07-14 09:04] LABS: CKMB 15.7 U/L (0.0-3.6); CREATINE KINASE 285 UL (21-232)
[2018-07-14 13:54] VITALS: BP 112/58; Ht 177.8 cm; Wt 88.6 kg
[2018-07-14 14:57] VITALS: BP 102/60
[2018-07-15] VITALS: BP 104/58
[2018-07-15 04:33] VITALS: BP 101/54
[2018-07-15 07:43] VITALS: BP 124/70
[2018-07-15] MEDS ORDERED: PLAVIX75 MG PO (10:25)
== END 2018-07-15 14:05 | disposition home or self-care (01) ==
LOC: D.CATH 08:03 → D.ER 08:03 → D.M2 08:03 → EDSTATUS 10:27 → D.M2 13:52 → D.CLR 07-15 10:07 → D.CATH 07-15 14:05
PROVIDERS: Emergency Medicine
DX: I21.4 Non-ST elevation (NSTEMI) myocardial infarction (principal); I25.110 Atherosclerotic heart disease of native coronary artery with unstable angina pectoris; I10 Essential (primary) hypertension; E78.5 Hyperlipidemia, unspecified; Z95.5 Presence of coronary angioplasty implant and graft; I25.2 Old myocardial infarction; Z01.812 Encounter for preprocedural laboratory examination

== ENCOUNTER → 2019-02-06 10:47 | Outpatient (CLI) | payer BC ==
[2018-07-14 13:54] VITALS: BMI 28.0
[~2019-02-06 10:47] MED LIST: BAYER CHEWABLE81 MG PO; METOPROLOL TART25 MG PO; MULTIPLE VITAMI1 TA1 PO; PLAVIX75 MG PO; PRAVACHOL40 MG PO; SAW PALMETTO450 MG PO; [UNRECOGNIZED DRUG - OTHER]
== END | disposition home or self-care (01) ==
LOC: D.US 10:47
PROVIDERS: ATTEND Internal Medicine Interventional Cardiology
DX: R09.89 Other specified symptoms and signs involving the circulatory and respiratory systems (principal)